=== PATIENT | male | born 1990 | race Caucasian/White ===

== ENCOUNTER 2018-01-16 06:51 | Emergency (ER) | payer OTHER ==
[2018-01-16 07:37] LABS: PLATELET COUNT 273 10^3/uL (150-400)
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
--- NOTE | 2018-01-16 16:22 | ASMTLCPROG ---
Notes Note: Notes: Referrals sent to [facility] for consideration for placement. [facility] . [facility] Can reach out to [facility] if [facility] decline. Date Signed: 01/16/2018 04:13 PM Electronically Signed By:Dayna Rios
[2018-01-16] MEDS ORDERED: NICOTINE 21 MG/24 HR PATCH TD ONE (16:37)
--- NOTE | 2018-01-16 19:44 | ASMTTCLDSP ---
TLC Discharge Disposition Disposition: Answers: Transfer Discharge Concerns/Recommendations: Notes: In consultation with [facility] ED physician, Kiara Davies MD and [place] on-call psychiatrist, Dr. Rajat MD, both concurred that pt appears to meet 27-65 criteria requiring psychiatric hospitalization as pt appears to be at risk of harm to self/others due to a mental illness condition. For Transfers, Accepting [facility] Facility: For Transfers, Accepting Dr. Delma Cedeno Psychiatrist: For Transfers, Reason [place] pt Patient is Being Transferred: Date Signed: 01/16/2018 07:43 PM Electronically Signed By:Dayna Rios
[2018-01-16 22:22] VITALS: BP 138/70
== END 2018-01-16 22:23 ==
DX: R45.851 Suicidal ideations (principal); M79.89 Other specified soft tissue disorders; F31.9 Bipolar disorder, unspecified
CPT/HCPCS: 80305; G0480